=== PATIENT | male | born 1975 | race Hispanic/Latino ===

== ENCOUNTER → 2023-07-23 11:27 | Outpatient (REF) | payer OTHER, SELFPAY ==
[2023-07-23 12:17] LABS: Urine Albumin Trace (Neg - Trace); Urine Bilirubin Negative (Negative); Urine Character Clear (Clear); Urine Color Yellow; Urine Glucose Negative (Negative); Urine Ketone Negative (Negative); Urine Leukocyte Negative (Negative); Urine Nitrite Positive (Negative); Urine Occult Blood Negative (Negative); Urine Specific Gravity 1.015 (<1.030); Urine Urobilinogen Negative (Neg - 1+)
[2023-07-23 12:19] LABS: % Basophils 0.1 % (0-2); % Immature Granulocytes 0.3 % (0-0.5); % Lymphocytes 14.4 % (20.5-51.1); % Monocytes 1.7 % (1.7-9.3); % Neutrophils 83.5 % (42.2-75.2); Absolute Lymphocytes 1.1 10^3/uL (1.2-3.4); Absolute Monocytes 0.1 10^3/uL (0.1-0.6); Absolute Neutrophils 6.4 10^3/uL (1.4-6.5); Hematocrit 45.3 % (39.0-52.0); Hemoglobin 16.1 g/dL (13.0-18.0); Mean Corp Hgb Conc. 35.5 g/dL (33.0-37.0); Mean Corpuscular Hgb 31.1 pg (27.0-31.0); Mean Corpuscular Volume 87.6 fL (80.0-94.0); Mean Platelet Volume 9.7 fL (7.4-10.4); Nucleated Red Blood Cells % 0 % (-); Platelet Count 257 10^3/uL (130-400); Red Blood Cell Count 5.17 10^6/uL (4.70-6.10); Red Cell Dist. Width 12.1 % (11.5-14.5); White Blood Cell Count 7.6 10^3/uL (4.8-10.8)
[2023-07-23 12:31] LABS: Urine Bacteria Many (Negative); Urine Red Blood Cell None Seen /HPF (0-2); Urine White Cell None Seen /HPF (0-5)
[2023-07-23 12:33] LABS: Urine Yeast Few (Negative)
[2023-07-23 12:52] LABS: ALT (SGPT) 33 U/L (0-50); AST (SGOT) 28 U/L (17-59); Alkaline Phosphatase 79 U/L (38-126); Blood Urea Nitrogen 24 mg/dl (9-20); Calcium 9.5 mg/dl (8.4-10.2); Carbon Dioxide 26 mmol/L (22-30); Chloride 103 mmol/L (98-107); Glucose 118 mg/dl (70-99); Sodium 135 mmol/L (135-145); Total Bilirubin 0.5 mg/dl (0.2-1.3); Total Protein 6.5 g/dl (6.3-8.2); eGFR > 60.00
[2023-07-23 12:56] LABS: C-Reactive Protein < 5.00 mg/L (0.0-10.00)
[2023-07-23 12:57] LABS: Potassium 4.4 mmol/L (3.5-5.1)
[2023-07-23 13:29] LABS: Erythrocyte Sed Rate 15 mm/hour (0-20)
[2023-07-25 01:43] LABS: Complement C3 99 mg/dl (88-165)
[2023-07-26 00:20] LABS: ds-DNA Ab, IgG Reflex To Titer 56 IU (0-24)
== END ==
LOC: CLINIC 11:27
PROVIDERS: ATTENDING PHYSICIAN Internal Medicine Rheumatology; FAMILY PHYSICIAN Family Medicine
DX: D70.9 Neutropenia, unspecified (principal); G37.3 Acute transverse myelitis in demyelinating disease of central nervous system; M32.14 Glomerular disease in systemic lupus erythematosus
CPT/HCPCS: 36415; 80053; 81003; 81015; 85025; 85652; 86140; 86160; 86225; 86256

== ENCOUNTER 2023-08-09 10:34 | Outpatient (RCR) | payer OTHER, SELFPAY ==
[2023-08-09 11:06] VITALS: BP 110/65
[2023-08-09] MEDS: BENLYSTA 250 MG IV (11:14)
== END 2023-08-10 08:52 | disposition home or self-care (01) ==
LOC: OID 10:34
PROVIDERS: ATTENDING PHYSICIAN Internal Medicine Rheumatology; FAMILY PHYSICIAN Nurse Practitioner Adult Health
DX: M32.14 Glomerular disease in systemic lupus erythematosus (principal); G37.3 Acute transverse myelitis in demyelinating disease of central nervous system; D70.9 Neutropenia, unspecified; M25.849 Other specified joint disorders, unspecified hand
CPT/HCPCS: 96365; J0490

== ENCOUNTER 2023-09-06 10:41 | Outpatient (RCR) | payer OTHER, SELFPAY ==
[2023-09-06 11:13] VITALS: BP 116/65
[2023-09-06] MEDS: BENLYSTA 250 MG IV (11:21)
== END 2023-09-07 08:42 | disposition home or self-care (01) ==
LOC: OID 10:41
PROVIDERS: ATTENDING PHYSICIAN Internal Medicine Rheumatology; FAMILY PHYSICIAN Nurse Practitioner Adult Health
DX: M32.14 Glomerular disease in systemic lupus erythematosus (principal); G37.3 Acute transverse myelitis in demyelinating disease of central nervous system; D70.9 Neutropenia, unspecified; M25.849 Other specified joint disorders, unspecified hand
CPT/HCPCS: 96365; J0490

== ENCOUNTER 2023-10-04 10:45 | Outpatient (RCR) | payer OTHER, SELFPAY ==
[2023-10-04 11:14] VITALS: BP 108/74
[2023-10-04] MEDS: BENLYSTA 250 MG IV (11:20)
[2023-10-04 12:25] VITALS: BP 105/66
== END 2023-10-18 23:59 | disposition home or self-care (01) ==
LOC: OID 10:45
PROVIDERS: ATTENDING PHYSICIAN Internal Medicine Rheumatology; FAMILY PHYSICIAN Nurse Practitioner Adult Health
DX: M32.14 Glomerular disease in systemic lupus erythematosus (principal); G37.3 Acute transverse myelitis in demyelinating disease of central nervous system; D70.9 Neutropenia, unspecified; M25.849 Other specified joint disorders, unspecified hand
CPT/HCPCS: 96365; J0490

== ENCOUNTER 2023-11-01 10:44 | Outpatient (RCR) | payer OTHER, SELFPAY ==
[2023-11-01 11:12] VITALS: BP 110/65
[2023-11-01] MEDS: BENLYSTA 250 MG IV (11:22)
== END 2023-11-02 08:36 | disposition home or self-care (01) ==
LOC: OID 10:44
PROVIDERS: ATTENDING PHYSICIAN Internal Medicine Rheumatology; FAMILY PHYSICIAN Nurse Practitioner Adult Health
DX: M32.14 Glomerular disease in systemic lupus erythematosus (principal); G37.3 Acute transverse myelitis in demyelinating disease of central nervous system; D70.9 Neutropenia, unspecified; M25.849 Other specified joint disorders, unspecified hand
CPT/HCPCS: 96365; J0490

== ENCOUNTER → 2023-11-25 10:44 | Outpatient (REF) | payer OTHER, SELFPAY ==
[2023-11-25 11:40] LABS: Urine Albumin Negative (Neg - Trace); Urine Bilirubin Negative (Negative); Urine Character Clear (Clear); Urine Color Yellow; Urine Glucose Negative (Negative); Urine Ketone Negative (Negative); Urine Leukocyte Negative (Negative); Urine Nitrite Negative (Negative); Urine Occult Blood Negative (Negative); Urine Specific Gravity 1.015 (<1.030); Urine Urobilinogen Negative (Neg - 1+)
[2023-11-25 11:43] LABS: % Basophils 0.2 % (0-2); % Eosinophils 0.6 % (0-6); % Immature Granulocytes 0.2 % (0-0.5); % Lymphocytes 21.4 % (20.5-51.1); % Neutrophils 70.6 % (42.2-75.2); Absolute Monocytes 0.3 10^3/uL (0.1-0.6); Absolute Neutrophils 3.3 10^3/uL (1.4-6.5); Hematocrit 43.9 % (39.0-52.0); Hemoglobin 15.4 g/dL (13.0-18.0); Mean Corp Hgb Conc. 35.1 g/dL (33.0-37.0); Mean Corpuscular Volume 88.3 fL (80.0-94.0); Mean Platelet Volume 10.1 fL (7.4-10.4); Nucleated Red Blood Cells % 0 % (-); Platelet Count 211 10^3/uL (130-400); Red Blood Cell Count 4.97 10^6/uL (4.70-6.10); Red Cell Dist. Width 12.5 % (11.5-14.5); White Blood Cell Count 4.7 10^3/uL (4.8-10.8)
[2023-11-25 12:17] LABS: Erythrocyte Sed Rate 9 mm/hour (0-20)
[2023-11-25 12:34] LABS: ALT (SGPT) 27 U/L (0-50); AST (SGOT) 32 U/L (17-59); Albumin 4.2 g/dl (3.5-5.0); Alkaline Phosphatase 91 U/L (38-126); Blood Urea Nitrogen 20 mg/dl (9-20); Calcium 9.8 mg/dl (8.4-10.2); Carbon Dioxide 25 mmol/L (22-30); Chloride 105 mmol/L (98-107); Glucose 101 mg/dl (70-99); Potassium 4.6 mmol/L (3.5-5.1); Sodium 139 mmol/L (135-145); Total Bilirubin 0.5 mg/dl (0.2-1.3); Total Protein 6.7 g/dl (6.3-8.2); eGFR > 60.00
[2023-11-25 12:41] LABS: C-Reactive Protein < 5.00 mg/L (0.0-10.00)
[2023-11-25 12:57] LABS: Glycohemoglobin (HgbA1c) 5.6 % (4.0-5.6)
[2023-11-27 04:08] LABS: ds-DNA Ab, IgG Reflex To Titer 74 IU (0-24)
[2023-11-28 00:11] LABS: Complement C3 97 mg/dl (88-165)
== END ==
LOC: CLINIC 10:44
PROVIDERS: ATTENDING PHYSICIAN Internal Medicine Rheumatology; FAMILY PHYSICIAN Family Medicine
DX: D70.9 Neutropenia, unspecified (principal); G37.3 Acute transverse myelitis in demyelinating disease of central nervous system; M32.14 Glomerular disease in systemic lupus erythematosus; Z51.81 Encounter for therapeutic drug level monitoring; M32.10 Systemic lupus erythematosus, organ or system involvement unspecified
CPT/HCPCS: 36415; 80053; 81003; 83036; 85025; 85652; 86140; 86160; 86225

== ENCOUNTER 2023-11-29 09:50 | Outpatient (RCR) | payer OTHER, SELFPAY ==
[2023-11-29] MEDS: BENLYSTA 250 MG IV (10:39)
[2023-11-29 10:57] VITALS: BP 132/80
== END 2023-11-30 08:35 | disposition home or self-care (01) ==
LOC: OID 09:50
PROVIDERS: ATTENDING PHYSICIAN Internal Medicine Rheumatology; FAMILY PHYSICIAN Nurse Practitioner Adult Health
DX: M32.14 Glomerular disease in systemic lupus erythematosus (principal); G37.3 Acute transverse myelitis in demyelinating disease of central nervous system; D70.9 Neutropenia, unspecified; M25.849 Other specified joint disorders, unspecified hand
CPT/HCPCS: 96365; J0490

== ENCOUNTER 2023-12-27 09:56 | Outpatient (RCR) | payer OTHER, SELFPAY ==
[2023-12-27] MEDS: BENLYSTA 250 MG IV (10:36)
[2023-12-27 10:41] VITALS: BP 109/69
== END 2023-12-28 13:17 | disposition home or self-care (01) ==
LOC: OID 09:56
PROVIDERS: ATTENDING PHYSICIAN Internal Medicine Rheumatology; FAMILY PHYSICIAN Nurse Practitioner Adult Health
DX: M32.14 Glomerular disease in systemic lupus erythematosus (principal); G37.3 Acute transverse myelitis in demyelinating disease of central nervous system; D70.9 Neutropenia, unspecified; M25.849 Other specified joint disorders, unspecified hand
CPT/HCPCS: 96365; J0490

== ENCOUNTER 2024-01-24 10:05 | Outpatient (RCR) | payer OTHER, SELFPAY ==
[2024-01-24 10:10] VITALS: BP 107/72
[2024-01-24] MEDS: BENLYSTA 250 MG IV (10:37)
[2024-01-24 11:43] VITALS: BP 98/60
== END 2024-01-24 14:06 | disposition home or self-care (01) ==
LOC: OID 10:05
PROVIDERS: ATTENDING PHYSICIAN Internal Medicine Rheumatology; FAMILY PHYSICIAN Nurse Practitioner Adult Health
DX: M32.14 Glomerular disease in systemic lupus erythematosus (principal); G37.3 Acute transverse myelitis in demyelinating disease of central nervous system; D70.9 Neutropenia, unspecified; M25.849 Other specified joint disorders, unspecified hand
CPT/HCPCS: 96365; J0490

== ENCOUNTER 2024-02-21 10:00 | Outpatient (RCR) | payer OTHER, SELFPAY ==
[2024-02-21 10:10] VITALS: BP 110/68
[2024-02-21] MEDS: BENLYSTA 250 MG IV (10:51)
== END 2024-02-22 08:24 | disposition home or self-care (01) ==
LOC: OID 10:00
PROVIDERS: ATTENDING PHYSICIAN Internal Medicine Rheumatology; FAMILY PHYSICIAN Nurse Practitioner Adult Health
DX: M32.14 Glomerular disease in systemic lupus erythematosus (principal); G37.3 Acute transverse myelitis in demyelinating disease of central nervous system; D70.9 Neutropenia, unspecified; M25.849 Other specified joint disorders, unspecified hand
CPT/HCPCS: 96365; J0490

== ENCOUNTER → 2024-04-02 09:34 | Outpatient (REF) | payer OTHER, SELFPAY ==
[2024-04-02 10:53] LABS: % Basophils 0.2 % (0-2); % Eosinophils 0.8 % (0-6); % Immature Granulocytes 0.2 % (0-0.5); % Monocytes 7.8 % (1.7-9.3); Absolute Lymphocytes 1.2 10^3/uL (1.2-3.4); Absolute Monocytes 0.4 10^3/uL (0.1-0.6); Absolute Neutrophils 3.4 10^3/uL (1.4-6.5); Hematocrit 43.7 % (39.0-52.0); Hemoglobin 15.4 g/dL (13.0-18.0); Mean Corp Hgb Conc. 35.2 g/dL (33.0-37.0); Mean Corpuscular Volume 87.9 fL (80.0-94.0); Mean Platelet Volume 9.3 fL (7.4-10.4); Nucleated Red Blood Cells % 0 % (-); Platelet Count 241 10^3/uL (130-400); Red Blood Cell Count 4.97 10^6/uL (4.70-6.10); Red Cell Dist. Width 11.9 % (11.5-14.5); White Blood Cell Count 5.1 10^3/uL (4.8-10.8)
[2024-04-02 11:08] LABS: AST (SGOT) 32 U/L (17-59); Albumin 4.1 g/dl (3.5-5.0); Alkaline Phosphatase 69 U/L (38-126); Blood Urea Nitrogen 20 mg/dl (9-20); Calcium 9.5 mg/dl (8.4-10.2); Carbon Dioxide 28 mmol/L (22-30); Chloride 101 mmol/L (98-107); Glucose 99 mg/dl (70-99); Potassium 4.6 mmol/L (3.5-5.1); Sodium 140 mmol/L (135-145); Total Bilirubin 0.4 mg/dl (0.2-1.3); Total Protein 6.3 g/dl (6.3-8.2); eGFR > 60.00
[2024-04-02 11:11] LABS: C-Reactive Protein < 5.00 mg/L (0.0-10.00)
[2024-04-02 11:16] LABS: Urine Albumin Negative (Neg - Trace); Urine Bilirubin Negative (Negative); Urine Character Clear (Clear); Urine Color Yellow; Urine Glucose Negative (Negative); Urine Ketone Negative (Negative); Urine Leukocyte Negative (Negative); Urine Nitrite Negative (Negative); Urine Occult Blood Negative (Negative); Urine Urobilinogen Negative (Neg - 1+)
[2024-04-02 11:23] LABS: Complement C3 100 mg/dl (88-165)
[2024-04-02 11:25] LABS: ALT (SGPT) 32 U/L (0-50); Creatine Phosphokinase 83 U/L (55-170)
[2024-04-02 11:54] LABS: Erythrocyte Sed Rate 9 mm/hour (0-20)
[2024-04-04 00:23] LABS: ds-DNA Ab, IgG Reflex To Titer 32 IU (0-24)
[2024-04-05 07:12] LABS: ds-DNA Ab, IgG Titer 1:40 (<1:10)
== END ==
LOC: CLINIC 09:34
PROVIDERS: ATTENDING PHYSICIAN Internal Medicine Rheumatology; FAMILY PHYSICIAN Family Medicine
DX: D70.9 Neutropenia, unspecified (principal); G37.3 Acute transverse myelitis in demyelinating disease of central nervous system
CPT/HCPCS: 36415; 80053; 81003; 82550; 85025; 85652; 86140; 86160; 86225; 86256

== ENCOUNTER 2024-04-17 10:36 | Outpatient (RCR) | payer OTHER, SELFPAY ==
[2024-03-20 10:05] VITALS: BP 106/61
[2024-03-20 10:25] VITALS: BMI 23.4
[2024-03-20] MEDS: BENLYSTA 250 MG IV (10:32)
[2024-03-20 11:58] VITALS: BP 106/56
[2024-04-17 10:50] VITALS: BP 102/66
[2024-04-17] MEDS: BENLYSTA 250 MG IV (11:11)
== END 2024-04-18 10:26 | disposition home or self-care (01) ==
LOC: OID 10:36
PROVIDERS: ATTENDING PHYSICIAN Internal Medicine Rheumatology; FAMILY PHYSICIAN Nurse Practitioner Adult Health
DX: M32.14 Glomerular disease in systemic lupus erythematosus (principal); G37.3 Acute transverse myelitis in demyelinating disease of central nervous system; D70.9 Neutropenia, unspecified; M25.849 Other specified joint disorders, unspecified hand
CPT/HCPCS: 96365; J0490

== ENCOUNTER 2024-05-15 10:45 | Outpatient (RCR) | payer OTHER, SELFPAY ==
[2024-05-15 10:50] VITALS: BP 100/64
[2024-05-15] MEDS: BENLYSTA 250 MG IV (11:24)
[2024-05-15 12:30] VITALS: BP 101/68
== END 2024-05-16 09:28 | disposition home or self-care (01) ==
LOC: OID 10:45
PROVIDERS: ATTENDING PHYSICIAN Internal Medicine Rheumatology; FAMILY PHYSICIAN Nurse Practitioner Adult Health
DX: M32.14 Glomerular disease in systemic lupus erythematosus (principal); G37.3 Acute transverse myelitis in demyelinating disease of central nervous system; D70.9 Neutropenia, unspecified; M25.849 Other specified joint disorders, unspecified hand
CPT/HCPCS: 96365; J0490

== ENCOUNTER 2024-06-12 10:24 | Outpatient (RCR) | payer OTHER, SELFPAY ==
[2024-06-12 10:30] VITALS: BP 91/50
[2024-06-12] MEDS: BENLYSTA 250 MG IV (11:04)
== END 2024-06-14 10:30 | disposition home or self-care (01) ==
LOC: OID 10:24
PROVIDERS: ATTENDING PHYSICIAN Internal Medicine Rheumatology; FAMILY PHYSICIAN Nurse Practitioner Adult Health
DX: M32.14 Glomerular disease in systemic lupus erythematosus (principal); G37.3 Acute transverse myelitis in demyelinating disease of central nervous system; D70.9 Neutropenia, unspecified
CPT/HCPCS: 96365; J0490

== ENCOUNTER 2024-07-10 10:24 | Outpatient (RCR) | payer OTHER, SELFPAY ==
[2024-07-10 10:30] VITALS: BP 96/58
[2024-07-10] MEDS: BENLYSTA 250 MG IV (10:55)
--- NOTE | 2024-07-10 11:23 | PTCARENOTE ---
pt c/o urinary frequency and burning with pink tinged (not observed) color. Pt in no distress; denies fevers/chills at home. [facility] [employer], order obtained for urinalysis reflex to culture. Updated pt and will obtain urine specimen when pt able.
will follow.
--- NOTE | 2024-07-10 12:37 | PTCARENOTE ---
pt's urine specimen collected and sent to lab, alia colored urine noted.
== END 2024-07-11 08:45 | disposition home or self-care (01) ==
LOC: OID 10:24
PROVIDERS: ATTENDING PHYSICIAN Internal Medicine Rheumatology; FAMILY PHYSICIAN Nurse Practitioner Adult Health
DX: M32.14 Glomerular disease in systemic lupus erythematosus (principal); G37.3 Acute transverse myelitis in demyelinating disease of central nervous system; D70.9 Neutropenia, unspecified; M25.849 Other specified joint disorders, unspecified hand
CPT/HCPCS: 87086; 96365; J0490

== ENCOUNTER 2024-08-07 10:38 | Outpatient (RCR) | payer OTHER, SELFPAY ==
[2024-08-07 10:59] VITALS: BP 122/61
[2024-08-07] MEDS: BENLYSTA 250 MG IV (11:10)
== END 2024-08-08 11:33 | disposition home or self-care (01) ==
LOC: OID 10:38
PROVIDERS: ATTENDING PHYSICIAN Internal Medicine Rheumatology; FAMILY PHYSICIAN Nurse Practitioner Adult Health
DX: M32.14 Glomerular disease in systemic lupus erythematosus (principal); G37.3 Acute transverse myelitis in demyelinating disease of central nervous system; D70.9 Neutropenia, unspecified; M25.849 Other specified joint disorders, unspecified hand
CPT/HCPCS: 96365; J0490

== ENCOUNTER → 2024-08-08 08:55 | Outpatient (REF) | payer OTHER, SELFPAY ==
[2024-08-08 09:41] LABS: % Basophils 0.2 % (0-2); % Eosinophils 0.6 % (0-6); % Immature Granulocytes 0.2 % (0-0.5); % Lymphocytes 21.6 % (20.5-51.1); % Monocytes 7.8 % (1.7-9.3); % Neutrophils 69.6 % (42.2-75.2); Absolute Lymphocytes 1.1 10^3/uL (1.2-3.4); Absolute Monocytes 0.4 10^3/uL (0.1-0.6); Absolute Neutrophils 3.6 10^3/uL (1.4-6.5); Hematocrit 43.7 % (39.0-52.0); Hemoglobin 15.2 g/dL (13.0-18.0); Mean Corp Hgb Conc. 34.8 g/dL (33.0-37.0); Mean Corpuscular Hgb 31.7 pg (27.0-31.0); Mean Platelet Volume 9.2 fL (7.4-10.4); Nucleated Red Blood Cells % 0 % (-); Platelet Count 215 10^3/uL (130-400); Red Cell Dist. Width 12.8 % (11.5-14.5); White Blood Cell Count 5.1 10^3/uL (4.8-10.8)
[2024-08-08 10:04] LABS: Urine Albumin 1+ (Neg - Trace); Urine Bilirubin Negative (Negative); Urine Character Clear (Clear); Urine Color Yellow; Urine Glucose Negative (Negative); Urine Ketone Negative (Negative); Urine Leukocyte Negative (Negative); Urine Nitrite Negative (Negative); Urine Occult Blood Negative (Negative); Urine Specific Gravity 1.015 (<1.030); Urine Urobilinogen Negative (Neg - 1+)
[2024-08-08 10:26] LABS: Urine Amorphous Seen; Urine Red Blood Cell 0-2 /HPF (0-2); Urine Squamous Cell 0-2 /LPF (Few); Urine White Cell 0-2 /HPF (0-5)
[2024-08-08 10:56] LABS: Erythrocyte Sed Rate 2 mm/hour (0-20)
[2024-08-08 11:18] LABS: ALT (SGPT) 27 U/L (0-50); AST (SGOT) 31 U/L (17-59); Albumin 4.4 g/dl (3.5-5.0); Alkaline Phosphatase 68 U/L (38-126); Blood Urea Nitrogen 22 mg/dl (9-20); Calcium 9.2 mg/dl (8.4-10.2); Carbon Dioxide 27 mmol/L (22-30); Chloride 102 mmol/L (98-107); Glucose 92 mg/dl (70-99); Potassium 4.6 mmol/L (3.5-5.1); Sodium 138 mmol/L (135-145); Total Bilirubin 0.8 mg/dl (0.2-1.3); Total Protein 6.5 g/dl (6.3-8.2); eGFR > 60.00
[2024-08-08 11:43] LABS: C-Reactive Protein < 5.00 mg/L (0.0-10.00)
[2024-08-08 12:11] LABS: Creatine Phosphokinase 163 U/L (55-170)
[2024-08-09 00:04] LABS: Complement C3 99 mg/dl (88-165)
[2024-08-10 01:45] LABS: ANA, IgG Reflex to HEp-2 Detected (None Detected)
== END ==
LOC: CLINIC 08:55
PROVIDERS: ATTENDING PHYSICIAN Internal Medicine Rheumatology; FAMILY PHYSICIAN Family Medicine
DX: D70.9 Neutropenia, unspecified (principal); G37.3 Acute transverse myelitis in demyelinating disease of central nervous system; M32.14 Glomerular disease in systemic lupus erythematosus; Z51.81 Encounter for therapeutic drug level monitoring
CPT/HCPCS: 36415; 80053; 81003; 81015; 82550; 85025; 85652; 86038; 86140; 86160

== ENCOUNTER 2024-09-04 12:27 | Outpatient (RCR) | payer OTHER, SELFPAY ==
[2024-09-04 14:15] VITALS: BP 113/69
[2024-09-04] MEDS: BENLYSTA 250 MG IV (14:29)
== END 2024-09-17 23:59 | disposition home or self-care (01) ==
LOC: OID 12:27
PROVIDERS: ATTENDING PHYSICIAN Internal Medicine Rheumatology; FAMILY PHYSICIAN Nurse Practitioner Adult Health
DX: M32.14 Glomerular disease in systemic lupus erythematosus (principal); G37.3 Acute transverse myelitis in demyelinating disease of central nervous system; D70.9 Neutropenia, unspecified; M25.849 Other specified joint disorders, unspecified hand
CPT/HCPCS: 96365; J0490

== ENCOUNTER 2024-10-02 10:44 | Outpatient (RCR) | payer OTHER, SELFPAY ==
[2024-10-02 11:00] VITALS: BP 108/62
[2024-10-02] MEDS: BENLYSTA 250 MG IV (11:28)
[2024-10-02 12:42] VITALS: BP 101/59
== END 2024-10-17 23:59 | disposition home or self-care (01) ==
LOC: OID 10:44
PROVIDERS: ATTENDING PHYSICIAN Internal Medicine Rheumatology; FAMILY PHYSICIAN Nurse Practitioner Adult Health
DX: M32.14 Glomerular disease in systemic lupus erythematosus (principal); G37.3 Acute transverse myelitis in demyelinating disease of central nervous system; D70.9 Neutropenia, unspecified; M25.849 Other specified joint disorders, unspecified hand
CPT/HCPCS: 96365; J0490

== ENCOUNTER 2024-10-30 10:45 | Outpatient (RCR) | payer OTHER, SELFPAY ==
[2024-10-30 10:56] VITALS: BP 108/56
[2024-10-30] MEDS: BENLYSTA 250 MG IV (11:19)
== END 2024-10-31 09:33 | disposition home or self-care (01) ==
LOC: OID 10:45
PROVIDERS: ATTENDING PHYSICIAN Internal Medicine Rheumatology; FAMILY PHYSICIAN Nurse Practitioner Adult Health
DX: M32.14 Glomerular disease in systemic lupus erythematosus (principal); G37.3 Acute transverse myelitis in demyelinating disease of central nervous system; D70.9 Neutropenia, unspecified; M25.849 Other specified joint disorders, unspecified hand
CPT/HCPCS: 96365; J0490

== ENCOUNTER 2024-11-27 10:44 | Outpatient (RCR) | payer OTHER, SELFPAY ==
[2024-11-27 11:00] VITALS: BP 111/53
[2024-11-27] MEDS: BENLYSTA 250 MG IV (11:37)
== END 2024-11-28 08:29 | disposition home or self-care (01) ==
LOC: OID 10:44
PROVIDERS: ATTENDING PHYSICIAN Internal Medicine Rheumatology; FAMILY PHYSICIAN Nurse Practitioner Adult Health
DX: M32.14 Glomerular disease in systemic lupus erythematosus (principal); G37.3 Acute transverse myelitis in demyelinating disease of central nervous system; D70.9 Neutropenia, unspecified; M25.849 Other specified joint disorders, unspecified hand
CPT/HCPCS: 96365; J0490

== ENCOUNTER → 2024-12-19 08:36 | Outpatient (REF) | payer OTHER, SELFPAY ==
[2024-12-19 09:44] LABS: Hematocrit 40.5 % (39.0-52.0); Hemoglobin 14.0 g/dL (13.0-18.0); Mean Corp Hgb Conc. 34.6 g/dL (33.0-37.0); Mean Corpuscular Volume 92.0 fL (80.0-94.0); Nucleated Red Blood Cells % 0 % (-); Platelet Count 224 10^3/uL (130-400); Red Cell Dist. Width 12.4 % (11.5-14.5)
[2024-12-19 09:51] LABS: Urine Character Clear (Clear)
[2024-12-19 10:19] LABS: C-Reactive Protein < 5.00 mg/L (0.0-10.00)
[2024-12-19 11:15] LABS: ALT (SGPT) 27 U/L (0-50); AST (SGOT) 29 U/L (17-59); Albumin 4.1 g/dl (3.5-5.0); Alkaline Phosphatase 61 U/L (38-126); Blood Urea Nitrogen 21 mg/dl (9-20); Calcium 9.1 mg/dl (8.4-10.2); Carbon Dioxide 24 mmol/L (22-30); Chloride 106 mmol/L (98-107); Glucose 93 mg/dl (70-99); Potassium 4.0 mmol/L (3.5-5.1); Sodium 137 mmol/L (135-145); Total Protein 6.3 g/dl (6.3-8.2); eGFR > 60.00
[2024-12-21 01:49] LABS: ds-DNA Ab, IgG Reflex To Titer 13 IU (0-24)
== END ==
LOC: REG 08:36
PROVIDERS: ATTENDING PHYSICIAN Internal Medicine Rheumatology; FAMILY PHYSICIAN Family Medicine
DX: D70.9 Neutropenia, unspecified (principal); G37.3 Acute transverse myelitis in demyelinating disease of central nervous system; M32.14 Glomerular disease in systemic lupus erythematosus; Z51.81 Encounter for therapeutic drug level monitoring
CPT/HCPCS: 36415; 80053; 81003; 85025; 85652; 86140; 86160; 86225

== ENCOUNTER 2024-12-25 09:43 | Outpatient (RCR) | payer OTHER, SELFPAY ==
[2024-12-25 10:15] VITALS: BP 94/41
[2024-12-25] MEDS: BENLYSTA 250 MG IV (10:47)
[2024-12-25 10:53] VITALS: BMI 20.6
[2024-12-25 11:55] VITALS: BP 89/50
== END 2024-12-26 10:27 | disposition home or self-care (01) ==
LOC: OID 09:43
PROVIDERS: ATTENDING PHYSICIAN Internal Medicine Rheumatology; FAMILY PHYSICIAN Nurse Practitioner Adult Health
DX: M32.14 Glomerular disease in systemic lupus erythematosus (principal); G37.3 Acute transverse myelitis in demyelinating disease of central nervous system; D70.9 Neutropenia, unspecified; M25.849 Other specified joint disorders, unspecified hand
CPT/HCPCS: 96365; J0490

== ENCOUNTER 2025-01-22 09:43 | Outpatient (RCR) | payer OTHER, SELFPAY ==
[2025-01-22 10:08] VITALS: BP 97/58
[2025-01-22] MEDS: BENLYSTA 250 MG IV (10:29)
== END 2025-01-23 08:22 | disposition home or self-care (01) ==
LOC: OID 09:43
PROVIDERS: ATTENDING PHYSICIAN Internal Medicine Rheumatology; FAMILY PHYSICIAN Nurse Practitioner Adult Health
DX: M32.14 Glomerular disease in systemic lupus erythematosus (principal); G37.3 Acute transverse myelitis in demyelinating disease of central nervous system; D70.9 Neutropenia, unspecified; M25.849 Other specified joint disorders, unspecified hand
CPT/HCPCS: 96365; J0490

== ENCOUNTER 2025-02-21 13:32 | Outpatient (RCR) | payer OTHER, SELFPAY ==
[2025-02-21 14:07] VITALS: BP 107/67
[2025-02-21] MEDS: BENLYSTA 250 MG IV (14:20)
== END 2025-02-22 10:31 | disposition home or self-care (01) ==
LOC: OID 13:32
PROVIDERS: ATTENDING PHYSICIAN Internal Medicine Rheumatology; FAMILY PHYSICIAN Nurse Practitioner Adult Health
DX: M32.14 Glomerular disease in systemic lupus erythematosus (principal); G37.3 Acute transverse myelitis in demyelinating disease of central nervous system; D70.9 Neutropenia, unspecified; M25.849 Other specified joint disorders, unspecified hand
CPT/HCPCS: 96365; J0490

== ENCOUNTER 2025-04-18 10:43 | Outpatient (RCR) | payer OTHER, SELFPAY ==
[2025-03-21 11:17] VITALS: BP 107/63
[2025-03-21] MEDS: BENLYSTA 250 MG IV (11:25)
[2025-03-21 12:45] VITALS: BP 101/60
[2025-04-18 10:55] VITALS: BP 93/58
[2025-04-18] MEDS: BENLYSTA 250 MG IV (11:19)
[2025-04-18 12:46] VITALS: BP 97/57
== END 2025-04-19 23:59 | disposition home or self-care (01) ==
LOC: OID 10:43
PROVIDERS: ATTENDING PHYSICIAN Internal Medicine Rheumatology; FAMILY PHYSICIAN Nurse Practitioner Adult Health
DX: M32.14 Glomerular disease in systemic lupus erythematosus (principal); G37.3 Acute transverse myelitis in demyelinating disease of central nervous system; D70.9 Neutropenia, unspecified; M25.849 Other specified joint disorders, unspecified hand
CPT/HCPCS: 96365; J0490

== ENCOUNTER 2025-05-15 10:40 | Outpatient (RCR) | payer OTHER, SELFPAY ==
[2025-05-15] MEDS: BENLYSTA 250 MG IV (11:08)
[2025-05-15 11:21] VITALS: BP 96/55
[2025-05-15 12:30] VITALS: BP 94/58
== END 2025-05-17 11:56 | disposition home or self-care (01) ==
LOC: OID 10:40
PROVIDERS: ATTENDING PHYSICIAN Internal Medicine Rheumatology; FAMILY PHYSICIAN Nurse Practitioner Adult Health
DX: M32.14 Glomerular disease in systemic lupus erythematosus (principal); G37.3 Acute transverse myelitis in demyelinating disease of central nervous system; D70.9 Neutropenia, unspecified; M25.849 Other specified joint disorders, unspecified hand
CPT/HCPCS: 96365; J0490

== ENCOUNTER → 2025-05-20 09:19 | Outpatient (REF) | payer OTHER, SELFPAY ==
[2025-05-20 10:56] LABS: Urine Character Clear (Clear)
[2025-05-20 10:59] LABS: Hematocrit 44.5 % (39.0-52.0); Hemoglobin 15.2 g/dL (13.0-18.0); Mean Corp Hgb Conc. 34.2 g/dL (33.0-37.0); Mean Corpuscular Volume 90.6 fL (80.0-94.0); Nucleated Red Blood Cells % 0 % (-); Platelet Count 236 10^3/uL (130-400); Red Cell Dist. Width 12.0 % (11.5-14.5)
[2025-05-20 11:10] LABS: Urine Squamous Cell 0-2 /LPF (Few); Urine White Cell 0-2 /HPF (0-5)
[2025-05-20 11:27] LABS: ALT (SGPT) 25 U/L (0-50); AST (SGOT) 30 U/L (17-59); Albumin 4.3 g/dl (3.5-5.0); Alkaline Phosphatase 54 U/L (38-126); Blood Urea Nitrogen 29 mg/dl (9-20); Calcium 9.4 mg/dl (8.4-10.2); Carbon Dioxide 26 mmol/L (22-30); Chloride 104 mmol/L (98-107); Glucose 94 mg/dl (70-99); Potassium 4.7 mmol/L (3.5-5.1); Sodium 135 mmol/L (135-145); Total Protein 6.7 g/dl (6.3-8.2); eGFR > 60.00
[2025-05-20 11:48] LABS: C-Reactive Protein < 5.00 mg/L (0.0-10.00)
[2025-05-22 01:09] LABS: ds-DNA Ab, IgG Reflex To Titer 30 IU (0-24)
== END ==
LOC: CLINIC 09:19
PROVIDERS: ATTENDING PHYSICIAN Internal Medicine Rheumatology; FAMILY PHYSICIAN Family Medicine
DX: G37.3 Acute transverse myelitis in demyelinating disease of central nervous system (principal); M32.14 Glomerular disease in systemic lupus erythematosus; Z51.81 Encounter for therapeutic drug level monitoring
CPT/HCPCS: 36415; 80053; 81003; 81015; 85025; 85652; 86140; 86160; 86225; 86256

== ENCOUNTER → 2025-06-05 13:42 | Outpatient (REF) | payer OTHER, SELFPAY | LOC: CLINIC 13:42 | PROVIDERS: ATTENDING PHYSICIAN Family Medicine | DX: M32.10 Systemic lupus erythematosus, organ or system involvement unspecified (principal) | CPT/HCPCS: 36415; 84443 ==

== ENCOUNTER 2025-06-10 09:54 | Outpatient (RCR) | payer OTHER, SELFPAY ==
[2025-06-10 10:00] VITALS: BP 93/52
[2025-06-10] MEDS: BENLYSTA 250 MG IV (10:29)
== END 2025-06-11 08:13 | disposition home or self-care (01) ==
LOC: OID 09:54
PROVIDERS: ATTENDING PHYSICIAN Internal Medicine Rheumatology; FAMILY PHYSICIAN Nurse Practitioner Adult Health
DX: M32.14 Glomerular disease in systemic lupus erythematosus (principal); G37.3 Acute transverse myelitis in demyelinating disease of central nervous system; D70.9 Neutropenia, unspecified; M25.849 Other specified joint disorders, unspecified hand
CPT/HCPCS: 96365; J0490